=== PATIENT | male | born 1965 | race Caucasian/White ===

== ENCOUNTER 2017-12-22 08:26 | Outpatient (CLI) | payer BC ==
[2017-12-22 10:39] LABS: #Basophils 0.1 thou/uL (0.0-0.2); #Eosinphils 0.1 thou/uL (0.0-0.7); #Lymphocytes 1.7 thou/uL (1.20-3.40); #Monocytes 0.7 thou/uL (0.11-0.59); #Neutrophils 5.6 thou/uL (1.40-6.50); %Basophils 0.9 % (0.0-1.0); %Eosinophils 1.7 % (0.0-10.0); %Lymphocytes 20.4 % (21.0-51.0); %Monocytes 8.4 % (0.0-10.0); %Neutrophils 68.6 % (42.0-75.0); Bilirubin Negative (Negative); Blood, Urine Negative (Negative); Clarity CLEAR (Clear); Glucose, Urine (Dipstick) Negative (Negative); Leukocyte Negative (Negative); Mean Corpuscular HGB CONC 35.4 g/dL (32.0-36.0); Mean Corpuscular Hemoglobin 36.6 pg (27.0-31.0); Mean Platelet Volume 6.7 fL (7.4-10.4); Nitrite Negative (Negative); Platelet Count 314 thou/uL (130-400); Protein, Urine (Dipstick) Negative (Neg-Trace); RBC Distribution Width 11.8 % (11.5-14.5); Red Blood Cell (RBC) Count 4.64 mill/uL (4.70-6.10); Specific Gravity, Urine 1.011 (1.002-1.036); Urobilinogen 0.2 mg/dL (0.2-1.0); White Blood Cell (WBC) Count 8.1 thou/uL (4.8-10.8)
[2017-12-22 10:42] LABS: Bacteria/HPF None Seen HPF (None Seen); Hyaline Casts/LPF 0-3 HYALINE CAST LPF (0-3 Hyaline); Pathc Cast-AUWi Flag 0.14 (0-2.49); RBC/HPF 0-3 HPF (0-3); Squamous Epithelial None Seen HPF (0-3); WBC/HPF None Seen HPF (0-3)
[2017-12-22 10:43] LABS: Prothrombin Time 12.9 SEC (12.0-14.7)
[2017-12-22 10:57] LABS: Anion Gap 12 mmol/L (10-20); BUN (Urea Nitrogen) 13 mg/dL (8.4-25.7); Calc. Creatinine Clearance 0 mL/min (70-130); Calcium 10.2 mg/dL (7.8-10.44); Carbon Dioxide 27 mmol/L (22-29); Chloride 104 mmol/L (98-107); Estimated GFR-MDRD Greater than 90; Glucose 74 mg/dL (70-105); Sodium 139 mmol/L (136-145)
--- NOTE | 2017-12-22 14:33 | RAD ---
TWO VIEWS CHEST: Date: 12-22-17 Comparison: None. History: Pre-operative patient. FINDINGS: There is no pneumothorax, pleural fluid, focal consolidation or alveolar edema. Heart and mediastinal contours are grossly unremarkable. IMPRESSION: No acute findings. POS: [facility]
--- NOTE | 2017-12-22 20:30 | EKG ---
Test Reason : Blood Pressure : / mmHG Vent. Rate : 057 BPM Atrial Rate : 057 BPM P-R Int : 252 ms QRS Dur : 088 ms QT Int : 410 ms P-R-T Axes : 010 032 027 degrees QTc Int : 399 ms Sinus bradycardia with 1st degree A-V block with Fusion complexes Possible Anterior infarct , age undetermined Abnormal ECG No previous ECGs available Confirmed by ISMAEL GIBSON, DR. Adkins ([id number]) on 12/22/2017 8:30:17 PM Referred By: JAIME Confirmed By:DR. Jed GUEVARA MD
== END 2017-12-22 08:27 | disposition home or self-care (01) ==
LOC: LABBT 08:26
PROVIDERS: ATTEND Orthopaedic Surgery
DX: Z01.818 Encounter for other preprocedural examination (principal); M16.11 Unilateral primary osteoarthritis, right hip; M87.051 Idiopathic aseptic necrosis of right femur
CPT/HCPCS: 71046; 80048; 81001; 85025; 85610; 86850; 86900; 86901; 87081; 93005; 93010

== ENCOUNTER 2017-12-22 08:45 | Inpatient (IN) | payer BC ==
[2017-12-27] MEDS ORDERED: Sodium Chloride 0.9% 100 ML ONE (08:17)
[2017-12-27] MEDS ORDERED: Levofloxacin 500 mg/D5W 100 ml Premix Bag ONE (08:17)
[2017-12-27] MEDS ORDERED: Vancomycin HCl 1.5 GM in Sodium Chloride 0.9% 250 ML 300 ML IVPB SCH ×2 (08:30→21:00)
[2017-12-27] MEDS ORDERED: Zolpidem Tartrate 5 MG TAB PO PRN ×2 (09:07→11:00)
[2017-12-27] MEDS ORDERED: HYDROcodone/Acetaminophen 10/325 mg Tablet PO PRN ×2 (09:07)
[2017-12-27] MEDS ORDERED: diphenhydrAMINE 25 MG CAP PO PRN ×2 (09:07→11:00)
[2017-12-27] MEDS ORDERED: Fentanyl 100 MCG/2 ML VIAL SLOW IVP PRN ×2 (09:07)
[2017-12-27] MEDS ORDERED: Promethazine HCl 25 MG/ML VIAL IM PRN ×2 (09:07→11:00)
[2017-12-27] MEDS ORDERED: traMADol HCl 50 MG TAB PO PRN ×2 (09:07→11:00)
[2017-12-27] MEDS ORDERED: Ondansetron HCl/PF 4 MG/2 ML Vial IVP PRN ×2 (09:07→11:00)
[2017-12-27] MEDS ORDERED: Acetaminophen 325 MG TAB PO PRN (09:07)
[2017-12-27] MEDS ORDERED: Tranexamic Acid 1,000 MG in Sodium Chloride 0.9% 100 ML IVPB SCH (09:15)
[2017-12-27] MEDS ORDERED: Midazolam HCl 2 mg/2 ml Vial ONE ×2 (09:58→11:27)
[2017-12-27] MEDS ORDERED: diphenhydrAMINE 50 MG/ML VIAL IM PRN (11:00)
[2017-12-27] MEDS ORDERED: HYDROcodone/Acetaminophen 5/325 mg Tablet PO PRN (11:00)
[2017-12-27] MEDS ORDERED: Ketorolac Tromethamine 30 MG/ML VIAL IVP PRN (11:00)
[2017-12-27] MEDS ORDERED: Hydrocerin (Eucerin) Cream 120 gm Jar TOP PRN (11:00)
[2017-12-27] MEDS ORDERED: diphenhydrAMINE 50 MG/ML VIAL IVP PRN (11:00)
[2017-12-27] MEDS ORDERED: fentaNYL Citrate/PF 1,250 MCG, Bupivacaine 25 ML in Sodium Chloride 0.9% 250 ML 200 ML EPIDURAL SCH (11:00)
[2017-12-27] MEDS ORDERED: Promethazine HCl 25 MG SUPP PR PRN (11:00)
[2017-12-27] MEDS ORDERED: Naloxone HCl 0.4 mg/ml Vial IVP PRN (11:00)
[2017-12-27] MEDS ORDERED: Bupivacaine 0.25% 10 ML VIAL EPIDURAL PRN (11:00)
[2017-12-27] MEDS ORDERED: Naloxone HCl 0.4 mg/ml Vial IV PRN (11:00)
[2017-12-27] MEDS ORDERED: Fentanyl 100 MCG/2 ML VIAL ONE ×3 (11:28→13:37)
[2017-12-27] MEDS ORDERED: Lidocaine 1% PF 5 ML VIAL ONE (11:48)
[2017-12-27] MEDS ORDERED: Ondansetron HCl/PF 4 MG/2 ML Vial ONE (11:48)
[2017-12-27] MEDS ORDERED: PROPOFOL 200 MG/20 ML VIAL ONE (11:48)
[2017-12-27] MEDS ORDERED: PHENYLEPHRINE-NS 100 MCG/ML 10 ML SYRINGE ONE ×2 (11:48→14:13)
[2017-12-27] MEDS ORDERED: Glycopyrrolate 0.2 MG/ML 5 ML SYRINGE ONE (11:48)
[2017-12-27] MEDS ORDERED: Bupivacaine/Epinephrine 0.25% 30 ML VIAL ONE (11:51)
--- NOTE | 2017-12-27 13:31 | OP ---
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 POSTOPERATIVE DIAGNOSES: Avascular osteonecrosis, right femoral head with mild degenerative changes. PROCEDURE: Press-Fit right total hip arthroplasty. SURGEON: Rodrigo Villalta M.D. RESIDENTIAL ROOFER HELPER: Khalif Shipley PA-C. ANESTHESIA: General via endotracheal tube augmented with indwelling epidural. COMPONENTS USED: [employer] primary press fit Accolade size 5.5 hip stem with a Tritanium 5 4 mm primary press-fit acetabular cup, 10 degree polyethylene fixed bearing 36 mm insert, and a ceram ic V40 femoral head, standard offset. FINDINGS: Mild hemarthrosis with large effusion of right hip capsule. DRAINS: None. SPECIMENS: None. COMPLICATIONS: None. COUNTS: Correct. ESTIMATED BLOOD LOSS: 100 mL. INDICATIONS FOR SURGERY: Jc is a 52-year-old white male who has had progressive right-sided hip pain for the last 3-4 months. MRI demonstrated avascular necrosis of the right femoral head. He has elected to proceed with total hip arthroplasty as treatment of this problem. PROCEDURE IN DETAIL: After informed consent was obtained in the preoperative holding area, the patie nt was taken to the operative suite where general anesthesia was induced. The patient was then posit ioned in the lateral decubitus position. The hip was then prepped and draped in usual sterile fashio n. The patient received preoperative antibiotics. Prior to incision, time-out was called and all me mbers of the surgical team agreed upon site, surgeon, and patient. After this, a longitudinal incisi on was made directly over the trochanter, noted by palpation extending 2 fingerbreadths above and bel ow the trochanter. The deeper subcutaneous layer was undermined with Bovie electrocautery. The ilio tibial band was encountered and incised sharply and the plane below this was developed bluntly. [facility] to hold this opened. The lateral aspect of the trochanter and the abduct or muscles were encountered and then reflected anteriorly off the trochanter using Bovie electrocaute ry. Once this was completed, the anterior capsule was then encountered and identified and copious ca psulotomy was carried out, exposing the femoral neck and head. Dislocation maneuver was then performe d and an in situ provisional neck cut was then made using the oscillating saw. Attention was then tu rned to acetabular preparation and sequential reaming was carried out up to the appropriate diameter and a trial was then malleted into place with good firm resistance and no pullout. The permanent porsche tabular shell was then malleted squarely into place, as was the appropriate liner. Once completed, t he wound was copiously irrigated and attention was then turned to femoral preparation. Flexion and ex ternal rotation was performed of the exposed thigh and femoral elevators were then placed at the prox imal aspect of the wound. Canal finder was used to establish the length of the canal and sequential reaming was carried out, followed by broaching. Once the appropriate stability was established with the trial broaches with both flexion, extension and rotational stability, we did trial with neutral a nd 2 mm offset incremental necks. Once the appropriate size was decided upon, with good stability no natalie with flexion, extension, internal and external rotation and shuck being negative, we removed the femoral trial broach and malletted into place the permanent prosthesis with good firm fit, which was also stable to rotation. Again, the hip felt very stable to flexion, extension, internal and externa l rotation. Leg lengths appeared near anatomic clinically and we were quite happy with prosthesis pl acement. Copious irrigation was then carried out through the entirety of the wound. Primary closure of the abductors was accomplished with interrupted #2 Vicryl mqfabh-[id number]-zheqf stitches and the IT ban d was then closed with interrupted #2 Vicryl, oversewn with a #2 running barbed Quill stitch. Subcut aneous fascia was closed with running barbed Quill stitch and a subcuticular Monocryl barbed Quill st itch was used for skin closure and augmented with skin cement. A sterile dressing was applied. The p rocedure was terminated without any complication. All counts were correct. The patient was awakened in the operative suite and taken to the recovery room in stable condition.
[2017-12-27] MEDS ORDERED: Ketorolac Tromethamine 30 MG/ML VIAL IVP SCH (14:00)
--- NOTE | 2017-12-27 15:50 | RAD ---
FRONTAL RADIOGRAPH LEFT HIP 12/27/17 COMPARISON: None. HISTORY: Postoperative patient. FINDINGS: There is mild superior joint space narrowing. There is no displaced fracture or dislocation. However, evaluation is limited as only a frontal view is provided. IMPRESSION: No displaced fracture appreciated. POS: [facility]
--- NOTE | 2017-12-27 15:51 | RAD ---
TWO VIEWS OF THE RIGHT HIP 12/27/17 COMPARISON: None. HISTORY: Postoperative patient, status post total hip arthroplasty. FINDINGS: The patient is status post total hip arthroplasty. No evidence for hardware failure. No acute fractur e or dislocation. Subcutaneous gas is seen lateral to the proximal right femur. IMPRESSION: Status post right total hip arthroplasty. POS: [facility]
[2017-12-27 16:19] VITALS: BMI 24.4
[2017-12-27] MEDS: Sodium Chloride 0.9% 1,000 ML IV SCH ×2 (18:18→21:42)
[2017-12-27] MEDS ORDERED: Diazepam 5 MG TAB PO PRN (20:01)
[2017-12-27] MEDS ORDERED: Thiamine HCl 200 MG/2 ML VIAL IM SCH (20:15)
[2017-12-27] MEDS ORDERED: Diazepam 5 MG TAB PO SCH (20:15)
--- NOTE | 2017-12-27 20:30 | CON ---
DATE OF CONSULTATION: 12/27/2017 PRIMARY CARE PHYSICIAN: Yahir Lazaro M.D. PRIMARY TEAM: Dr. Villalta. REASON FOR CONSULTATION: Medical management. HISTORY OF PRESENT ILLNESS: This is a 52-year-old white male with history of bilateral avascular nec rosis of the hips with worsening pain especially in the right recently who presented for a scheduled right total hip arthroplasty. This was performed earlier today. He is doing well postoperatively ri [facility] now, not in any discomfort. PAST MEDICAL HISTORY: 1. Gastroesophageal reflux disease with Waldron's esophagitis. 2. Single previous and gout attack. 3. Avascular necrosis of the hips. PAST SURGICAL HISTORY: None. SOCIAL HISTORY: The patient is , lives with his , Judith Arias. He smokes 1 pack of cigarettes per day as previously quit for a couple years, using Chantix, but then got back on it abo ut 10 years ago. He does not drink almost daily one large mixed drink per day. No illicit drug use. FAMILY HISTORY: Dad had a stroke and of stomach cancer at age 63 and his paternal grandmother h ad a stroke as well. ALLERGIES: PENICILLIN. HOME MEDICATIONS: 1. Ibuprofen 800 mg as needed for pain. 2. Tramadol 50 mg as needed for pain. 3. Allopurinol 300 mg each morning. 4. Geritol Complete multivitamin 1 tablet daily. 5. Protonix 40 mg each morning. 6. Ranitidine 150 mg as needed for GERD symptoms. REVIEW OF SYSTEMS: Constitutional: No fevers or chills. Eyes: No double vision or blurred vision. ENT: No congestion or drainage. He is a little bit sore since the intubation for the surgery, but not bad. Cardiovascular: No chest pain, no palpitations or racing heart. Pulmonary: No coughing, wheezing, shortness of breath. Gastrointestinal: No abdominal pain. He had a little nausea right after surgery this since resolved. No vomiting, no diarrhea or constipation. Genitourinary: No dys uria or hematuria. Musculoskeletal: See HPI. Skin: No rashes or lesions noted. Neurologic: No n umbness, tingling or focal weakness. PHYSICAL EXAMINATION: VITAL SIGNS: Blood pressure 99/60, pulse 60, respirations 18, O2 sat 95% on room air, temperature 97 .9. GENERAL: This is a well-developed, well-nourished, white male who has some flushing of the face cons istent with regular alcohol intake and in no acute distress. HEENT: Pupils equal, round, and reactive to light. Extraocular movements intact. Oropharynx clear without lesions, erythema or exudate. NECK: Supple, no lymphadenopathy, no thyroid nodules or enlargement, no JVD. HEART: Regular rate and rhythm, no murmurs, rubs or gallops. LUNGS: Clear to auscultation bilaterally, no wheezes, crackles or rhonchi. ABDOMEN: Soft, nontender to palpation, normoactive bowel sounds, no hepatosplenomegaly or other mass es. EXTREMITIES: He has a surgical dressing on the right hip. No clubbing. No cyanosis. SKIN: No rashes or other lesions noted. NEUROLOGIC: He has intact sensation in all extremities. He is able to move all extremities and has no facial droop. LABORATORY DATA: He did have labs done 5 days ago, this showed CBC normal except for an elevated MCV of 103 consistent with his alcohol intake. Coagulation profile normal. His basic metabolic panel w as negative. His urinalysis was negative. ASSESSMENT AND PLAN: 1. Bilateral avascular necrosis of the hips, status post right total hip arthroplasty, doing well po stop. 2. History of regular alcohol intake. We will go ahead and put him on ASE protocol in case he start s having withdrawal symptoms. 3. History of gastroesophageal reflux disease with Waldron's esophagitis. We will continue patient' s PPI. 4. History of gout. We will continue patient's allopurinol. 5. Deep venous thrombosis prophylaxis as per surgical team. CODE STATUS: Patient is a FULL CODE.
[2017-12-27] MEDS ORDERED: Famotidine 20 MG TAB PO PRN (21:00)
[2017-12-27] MEDS: Senokot S 8.6-50 MG TAB PO SCH (21:50)
[2017-12-27] MEDS: Ferrous Gluconate 324 MG TAB PO SCH (21:50)
[2017-12-28] MEDS: HYDROcodone/Acetaminophen 5/325 mg Tablet PO PRN ×4 (01:25→20:43)
[2017-12-28] MEDS ORDERED: Diazepam 5 MG TAB PO PRN (04:00)
[2017-12-28 04:30] LABS: Hemoglobin 13.3 g/dL (14.0-18.0); Mean Corpuscular HGB CONC 34.4 g/dL (32.0-36.0); Mean Corpuscular Hemoglobin 35.9 pg (27.0-31.0); Mean Platelet Volume 6.9 fL (7.4-10.4); Platelet Count 272 thou/uL (130-400); RBC Distribution Width 11.7 % (11.5-14.5); Red Blood Cell (RBC) Count 3.72 mill/uL (4.70-6.10); White Blood Cell (WBC) Count 8.9 thou/uL (4.8-10.8)
[2017-12-28] MEDS: Sodium Chloride 0.9% 1,000 ML IV SCH ×2 (04:33→08:03)
[2017-12-28] MEDS: Magnesium Oxide 400 MG TAB PO SCH (08:02)
[2017-12-28] MEDS: Folic Acid 1 MG TAB PO SCH (08:03)
[2017-12-28] MEDS: Ferrous Gluconate 324 MG TAB PO SCH ×2 (08:03→20:43)
[2017-12-28] MEDS: Multivitamin W/ Minerals 1 TAB PO SCH (08:03)
[2017-12-28] MEDS: Allopurinol 300 MG TAB PO SCH (08:03)
[2017-12-28] MEDS: Senokot S 8.6-50 MG TAB PO SCH ×2 (08:03→20:43)
[2017-12-28] MEDS: traMADol HCl 50 MG TAB PO PRN (08:27)
[2017-12-28] MEDS ORDERED: Multivitamin W/ Minerals 1 TAB PO SCH ×2 (09:00)
--- NOTE | 2017-12-28 14:13 | PDOC.PN ---
- Subjective Encounter Start Date: 12/28/17 Encounter Start Time: 14:12 Subjective: Pt examined for Rt hip Arthroplasty, POD #1, -: sitting in chair denies any complain - Objective MAR Reviewed: Yes Vital Signs & Weight: Vital Signs (12 hours) Temp Pulse Resp BP BP Pulse Ox 12/28/17 11:28 98.8 F 78 16 102/65 92 L 12/28/17 08:40 99.3 F 80 18 98 12/28/17 07:47 99.3 F 80 18 123/76 94 L 12/28/17 04:00 99.1 F 89 18 128/78 97 Weight Admit Weight 185 lb Weight 185 lb I&O: 12/27/17 12/28/17 12/29/17 06:59 06:59 06:59 Intake Total 3616 Output Total 4000 Balance -384 Result Diagrams: 12/28/17 03:31 Radiology Reviewed by me: Yes Phys Exam - Physical Examination HEENT: PERRLA, sclera anicteric, TM's clear, oral pharynx no lesions Neck: no nodes, no JVD Respiratory: no wheezing, no rales, no rhonchi, clear to auscultation bilateral Cardiovascular: RRR, no significant murmur, no rub Gastrointestinal: soft, non-tender, no distention, positive bowel sounds Musculoskeletal: no edema, pulses present (s/p dressing) Dx/Plan - Plan plan discussed w/ family, PT/OT, DVT proph w/lovenox * . 1) Rt Hip Arthropasty, Continue POst OP Care and Pain management 2) esophogitis continue PPI
[2017-12-29] MEDS: HYDROcodone/Acetaminophen 5/325 mg Tablet PO PRN ×2 (01:05→06:02)
[2017-12-29] MEDS: Sodium Chloride 0.9% 1,000 ML IV SCH ×2 (01:07→14:52)
[2017-12-29 06:03] LABS: Hemoglobin 12.7 g/dL (14.0-18.0); Mean Corpuscular HGB CONC 34.4 g/dL (32.0-36.0); Mean Corpuscular Hemoglobin 35.8 pg (27.0-31.0); Mean Platelet Volume 6.5 fL (7.4-10.4); Platelet Count 241 thou/uL (130-400); RBC Distribution Width 11.6 % (11.5-14.5); Red Blood Cell (RBC) Count 3.56 mill/uL (4.70-6.10)
[2017-12-29] MEDS: Multivitamin W/ Minerals 1 TAB PO SCH ×2 (09:11→09:13)
[2017-12-29] MEDS: Ferrous Gluconate 324 MG TAB PO SCH ×2 (09:12→09:13)
[2017-12-29] MEDS: Senokot S 8.6-50 MG TAB PO SCH (09:12)
[2017-12-29] MEDS: Magnesium Oxide 400 MG TAB PO SCH (09:13)
[2017-12-29] MEDS: Folic Acid 1 MG TAB PO SCH (09:13)
[2017-12-29] MEDS: traMADol HCl 50 MG TAB PO PRN (09:14)
[2017-12-29] MEDS: Allopurinol 300 MG TAB PO SCH (09:14)
[2017-12-29] MEDS ORDERED: HYDROcodone/Acetaminophen 10/325 mg Tablet PO PRN (10:32)
[2017-12-29] MEDS: HYDROcodone/Acetaminophen 10/325 mg Tablet PO PRN ×2 (11:12→15:20)
[2017-12-29 11:59] VITALS: TEMP 98.2
[2017-12-29 12:02] VITALS: BP 123/74
--- NOTE | 2017-12-29 13:49 | PDOC.PN ---
- Subjective Encounter Start Date: 12/29/17 Encounter Start Time: 13:47 Subjective: Pt seen and Examined for Right Hip replacement -: walked with PT, no new complain - Objective Vital Signs & Weight: Vital Signs (12 hours) Temp Pulse Resp BP BP BP Pulse Ox 12/29/17 12:01 123/74 12/29/17 11:30 98.2 F 77 18 128/72 94 L 12/29/17 10:40 99.1 F 94 20 94 L 12/29/17 09:01 122/80 12/29/17 08:15 120/80 12/29/17 07:50 99.1 F 94 20 101/59 L 93 L 12/29/17 04:17 98.7 F 75 17 105/56 L 93 L Weight Admit Weight 185 lb Weight 185 lb I&O: 12/28/17 12/29/17 12/30/17 06:59 06:59 06:59 Intake Total 3616 3420 Output Total 4000 3900 Balance -384 -480 Result Diagrams: 12/29/17 05:23 Radiology Reviewed by me: Yes Phys Exam - Physical Examination HEENT: PERRLA, sclera anicteric, oral pharynx no lesions Neck: no nodes, no JVD, supple, full ROM Respiratory: no wheezing, no rales, no rhonchi, clear to auscultation bilateral Cardiovascular: RRR, no significant murmur, no rub, gallop Gastrointestinal: soft, non-tender, no distention, positive bowel sounds Musculoskeletal: no edema, pulses present (Dressing RT HIP) Neurological: non-focal Lymphatic: no nodes Psychiatric: normal affect, A&O x 3 Dx/Plan - Plan PT/OT * . 1) RT Hip Replacement, Continue Postop care,PT pain mangement 2 GERD on PPI 3 DVT proiphylaxis Aspirin
== END 2017-12-29 17:05 | disposition home or self-care (01) | DRG 470 ==
LOC: SURG A 12-27 07:44 → SJJU 12-27 14:43
PROVIDERS: ADMIT Orthopaedic Surgery; ATTEND Orthopaedic Surgery
PROC: 0SRB02A Replacement of Left Hip Joint with Metal on Polyethylene Synthetic Substitute, Uncemented, Open Approach (ICD-10-PCS; principal; 2017-12-27)
DX: M16.11 Unilateral primary osteoarthritis, right hip (principal); M87.9 Osteonecrosis, unspecified; K21.9 Gastro-esophageal reflux disease without esophagitis; K22.70 Barrett's esophagus without dysplasia; F17.210 Nicotine dependence, cigarettes, uncomplicated; Z88.0 Allergy status to penicillin; Z79.1 Long term (current) use of non-steroidal anti-inflammatories (NSAID); Z79.899 Other long term (current) drug therapy
CPT/HCPCS: 36415; 85027; G8978-GP-CK; G8979-GP-CI; G8987-GO-CJ; G8988-GO-CI; J1885; J1956; J2001; J2250; J2405; J2704; J3010; J3370; J3411; J3475; J3490; J7050

== ENCOUNTER 2018-02-23 10:11 | Outpatient (CLI) | payer BC ==
[2018-02-23 11:49] LABS: #Eosinphils 0.1 thou/uL (0.0-0.7); #Lymphocytes 1.7 thou/uL (1.20-3.40); #Monocytes 0.5 thou/uL (0.11-0.59); #Neutrophils 3.6 thou/uL (1.40-6.50); %Basophils 0.7 % (0.0-1.0); %Lymphocytes 28.2 % (21.0-51.0); %Monocytes 8.5 % (0.0-10.0); %Neutrophils 60.6 % (42.0-75.0); Hemoglobin 14.9 g/dL (14.0-18.0); Mean Corpuscular HGB CONC 34.9 g/dL (32.0-36.0); Mean Corpuscular Hemoglobin 35.1 pg (27.0-31.0); Mean Platelet Volume 6.1 fL (7.4-10.4); Platelet Count 323 thou/uL (130-400); RBC Distribution Width 11.7 % (11.5-14.5); Red Blood Cell (RBC) Count 4.24 mill/uL (4.70-6.10); White Blood Cell (WBC) Count 5.9 thou/uL (4.8-10.8)
[2018-02-23 12:00] LABS: INR-International Normal Ratio 0.9; Prothrombin Time 12.7 SEC (12.0-14.7)
[2018-02-23 12:05] LABS: PTT 26.7 SEC (22.9-36.1)
[2018-02-23 12:13] LABS: Anion Gap 12 mmol/L (10-20); BUN (Urea Nitrogen) 14 mg/dL (8.4-25.7); Calc. Creatinine Clearance 0 mL/min (70-130); Calcium 10.3 mg/dL (7.8-10.44); Carbon Dioxide 24 mmol/L (22-29); Chloride 108 mmol/L (98-107); Estimated GFR-MDRD Greater than 90; Glucose 104 mg/dL (70-105); Potassium 3.9 mmol/L (3.5-5.1); Sodium 140 mmol/L (136-145)
== END 2018-02-23 10:12 | disposition home or self-care (01) ==
LOC: LABBT 10:11
PROVIDERS: ATTEND Orthopaedic Surgery
DX: Z01.818 Encounter for other preprocedural examination (principal); M16.11 Unilateral primary osteoarthritis, right hip; M87.851 Other osteonecrosis, right femur
CPT/HCPCS: 80048; 85025; 85610; 85730; 86850; 86900; 86901; 87081

== ENCOUNTER 2018-02-23 13:15 | Inpatient (IN) | payer BC ==
[2018-02-23 10:41] VITALS: BMI 24.4
[2018-02-28] MEDS ORDERED: Vancomycin HCl 1.5 GM in Sodium Chloride 0.9% 250 ML 300 ML IVPB SCH ×2 (10:15→23:00)
[2018-02-28] MEDS ORDERED: Ondansetron HCl/PF 4 MG/2 ML Vial IVP PRN ×3 (10:24→13:08)
[2018-02-28] MEDS ORDERED: Fentanyl 100 MCG/2 ML VIAL SLOW IVP PRN ×2 (10:24)
[2018-02-28] MEDS ORDERED: diphenhydrAMINE 25 MG CAP PO PRN ×2 (10:24→11:30)
[2018-02-28] MEDS ORDERED: HYDROcodone/Acetaminophen 10/325 mg Tablet PO PRN ×2 (10:24)
[2018-02-28] MEDS ORDERED: traMADol HCl 50 MG TAB PO PRN ×3 (10:24→11:30)
[2018-02-28] MEDS ORDERED: Acetaminophen 325 MG TAB PO PRN (10:24)
[2018-02-28] MEDS ORDERED: Promethazine HCl 25 MG/ML VIAL IM PRN ×2 (10:24→11:30)
[2018-02-28] MEDS ORDERED: Zolpidem Tartrate 5 MG TAB PO PRN ×2 (10:24→11:30)
[2018-02-28] MEDS ORDERED: Levofloxacin 500 mg/D5W 100 ml Premix Bag ONE (10:25)
[2018-02-28] MEDS ORDERED: Sodium Chloride 0.9% 100 ML ONE (10:26)
[2018-02-28] MEDS ORDERED: Midazolam HCl 2 mg/2 ml Vial ONE (10:37)
[2018-02-28] MEDS ORDERED: HYDROmorphone 0.5 MG/0.5 ML SYRINGE ONE (10:37)
[2018-02-28] MEDS ORDERED: Promethazine HCl 25 MG SUPP PR PRN (11:30)
[2018-02-28] MEDS ORDERED: diphenhydrAMINE 50 MG/ML VIAL IVP PRN (11:30)
[2018-02-28] MEDS ORDERED: Hydrocerin (Eucerin) Cream 120 gm Jar TOP PRN (11:30)
[2018-02-28] MEDS ORDERED: diphenhydrAMINE 50 MG/ML VIAL IM PRN (11:30)
[2018-02-28] MEDS ORDERED: Naloxone HCl 0.4 mg/ml Vial IV PRN (11:30)
[2018-02-28] MEDS ORDERED: fentaNYL Citrate/PF 1,250 MCG, Bupivacaine 25 ML in Sodium Chloride 0.9% 250 ML 200 ML EPIDURAL SCH (11:30)
[2018-02-28] MEDS ORDERED: Naloxone HCl 0.4 mg/ml Vial IVP PRN (11:30)
[2018-02-28] MEDS ORDERED: Bupivacaine 0.25% 10 ML VIAL EPIDURAL PRN (11:30)
[2018-02-28] MEDS ORDERED: Ropivacaine 0.2% HCl/PF 20 ML ONE (12:00)
[2018-02-28] MEDS ORDERED: Promethazine HCl 25 MG/ML VIAL SLOW IVP PRN (13:08)
[2018-02-28] MEDS ORDERED: Morphine Sulfate 2 MG/ML SYRINGE SLOW IVP PRN (13:08)
[2018-02-28] MEDS ORDERED: Fentanyl 100 MCG/2 ML VIAL ONE ×2 (13:10→13:36)
[2018-02-28] MEDS ORDERED: PROPOFOL 200 MG/20 ML VIAL ONE (13:29)
[2018-02-28] MEDS ORDERED: Ketorolac Tromethamine 30 MG/ML VIAL ONE (13:29)
[2018-02-28] MEDS ORDERED: Lidocaine 1% PF 5 ML VIAL ONE (13:29)
[2018-02-28] MEDS ORDERED: Ondansetron HCl/PF 4 MG/2 ML Vial ONE (13:29)
[2018-02-28] MEDS ORDERED: Glycopyrrolate 0.2 MG/ML 5 ML SYRINGE ONE (13:29)
[2018-02-28] MEDS ORDERED: Dexamethasone 20 MG/5 ML VIAL ONE (13:29)
[2018-02-28] MEDS ORDERED: PHENYLEPHRINE-NS 100 MCG/ML 10 ML SYRINGE ONE (13:29)
--- NOTE | 2018-02-28 13:43 | OP ---
DATE OF PROCEDURE: 02/28/2018 TITLE OF PROCEDURE: Left total hip arthroplasty using [place] Accolade 5.5 stem, standard 36 mm head , 54 mm Tritanium cup with X3 polyethylene. The head was a ceramic head. SURGEON: Rodrigo Villalta M.D. BOW TACKER: Milton Cuevas PA-C. BLOOD LOSS: 150 mL SPECIMEN: None. DRAINS: None. COMPLICATIONS: None. PROCEDURE IN DETAIL: After informed consent was obtained in the preoperative holding area, the patie nt was taken to the operative suite where general anesthesia was induced. The patient was then posit ioned in the lateral decubitus position. The hip was then prepped and draped in usual sterile fashio n. The patient received preoperative antibiotics. Prior to incision, time-out was called and all me mbers of the surgical team agreed upon site, surgeon, and patient. After this, a longitudinal incisi on was made directly over the trochanter, noted by palpation extending 2 fingerbreadths above and bel ow the trochanter. The deeper subcutaneous layer was undermined with Bovie electrocautery. The ilio tibial band was encountered and incised sharply and the plane below this was developed bluntly. [facility] to hold this opened. The lateral aspect of the trochanter and the abduct or muscles were encountered and then reflected anteriorly off the trochanter using Bovie electrocaute ry. Once this was completed, the anterior capsule was then encountered and identified and copious ca psulotomy was carried out, exposing the femoral neck and head. Dislocation maneuver was then perform ed and an in situ provisional neck cut was then made using the oscillating saw. Attention was then t urned to acetabular preparation and sequential reaming was carried out up to the appropriate diameter and a trial was then malleted into place with good firm resistance and no pullout. The permanent ac etabular shell was then malleted squarely into place, as was the appropriate liner. Once completed, the wound was copiously irrigated and attention was then turned to femoral preparation. Flexion and e xternal rotation was performed of the exposed thigh and femoral elevators were then placed at the pro ximal aspect of the wound. Canal finder was used to establish the length of the canal and sequential reaming was carried out, followed by broaching. Once the appropriate stability was established with the trial broaches with both flexion, extension and rotational stability, we did trial with neutral and 2 mm offset incremental necks. Once the appropriate size was decided upon, with good stability n oted with flexion, extension, internal and external rotation and shuck being negative, we removed the femoral trial broach and malletted into place the permanent prosthesis with good firm fit, which was also stable to rotation. Again, the hip felt very stable to flexion, extension, internal and material handling supervisor al rotation. Leg lengths appeared near anatomic clinically and we were quite happy with prosthesis p lacement. Copious irrigation was then carried out through the entirety of the wound. Primary closur e of the abductors was accomplished with interrupted #2 Vicryl [id number]-ta-qetia stitches and the IT ba nd was then closed with interrupted #2 Vicryl, oversewn with a #2 running barbed Quill stitch. Subcu taneous fascia was closed with running barbed Quill stitch and a subcuticular Monocryl barbed Quill s titch was used for skin closure and augmented with skin cement. A sterile dressing was applied. The procedure was terminated without any complication. All counts were correct. The patient was awakene d in the operative suite and taken to the recovery room in stable condition.
--- NOTE | 2018-02-28 13:51 | RAD ---
TWO VIEWS LEFT HIP: History: Total hip arthroplasty. FINDINGS: Post-operative change consistent with left hip arthroplasty noted. Alignment appears to be anatomic. IMPRESSION: Near anatomic alignment. Patient status post left hip arthroplasty. POS: [facility]
[2018-02-28] MEDS ORDERED: Ketorolac Tromethamine 30 MG/ML VIAL IVP SCH (14:00)
[2018-02-28] MEDS: Ketorolac Tromethamine 30 MG/ML VIAL IVP SCH ×3 (16:16→23:21)
[2018-02-28] MEDS: Sodium Chloride 0.9% 1,000 ML IV SCH ×2 (16:16→21:16)
[2018-02-28] MEDS ORDERED: Famotidine 20 MG TAB PO PRN (21:00)
[2018-02-28] MEDS: Aspirin 325 MG TAB PO SCH (21:17)
[2018-02-28] MEDS: Varenicline Tartrate 0.5 MG TAB PO SCH (21:17)
[2018-03-01 04:53] LABS: Hemoglobin 11.3 g/dL (14.0-18.0); Mean Corpuscular HGB CONC 36.2 g/dL (32.0-36.0); Mean Corpuscular Hemoglobin 36.8 pg (27.0-31.0); Platelet Count 257 thou/uL (130-400); RBC Distribution Width 11.7 % (11.5-14.5); Red Blood Cell (RBC) Count 3.08 mill/uL (4.70-6.10); White Blood Cell (WBC) Count 10.5 thou/uL (4.8-10.8)
[2018-03-01] MEDS: Ketorolac Tromethamine 30 MG/ML VIAL IVP SCH ×4 (05:30→23:54)
[2018-03-01] MEDS: Sodium Chloride 0.9% 1,000 ML IV SCH ×2 (06:52→16:06)
[2018-03-01] MEDS: Varenicline Tartrate 0.5 MG TAB PO SCH ×2 (07:38→21:18)
[2018-03-01] MEDS: Senokot S 8.6-50 MG TAB PO SCH ×2 (07:39→21:16)
[2018-03-01] MEDS: Multivitamin W/ Minerals 1 TAB PO SCH (07:39)
[2018-03-01] MEDS: Aspirin 325 MG TAB PO SCH ×2 (07:40→21:16)
[2018-03-01] MEDS: Ferrous Gluconate 324 MG TAB PO SCH ×2 (07:40→16:41)
[2018-03-01] MEDS: Allopurinol 300 MG TAB PO SCH (07:40)
[2018-03-01] MEDS ORDERED: MULTIVIT MIN36 PO SCH (09:00)
[2018-03-01] MEDS ORDERED: IRON PO SCH (09:00)
[2018-03-01] MEDS ORDERED: FOLIC ACID PO SCH (09:00)
[2018-03-01] MEDS: HYDROcodone/Acetaminophen 5/325 mg Tablet PO PRN ×3 (09:34→21:18)
--- NOTE | 2018-03-01 21:27 | PDOC.PN ---
- Subjective Encounter Start Date: 03/01/18 Encounter Start Time: 13:00 Subjective: pt up in chair no complains - Objective Vital Signs & Weight: Vital Signs (12 hours) Temp Pulse Resp BP Pulse Ox 03/01/18 16:07 97.9 F 68 18 101/59 L 94 L 03/01/18 11:30 97.9 F 64 18 120/70 96 Weight Admit Weight 185 lb Weight 185 lb I&O: 02/28/18 03/01/18 03/02/18 06:59 06:59 06:59 Intake Total 2940 1680 Output Total 2800 0405 Balance 140 -795 Result Diagrams: 03/01/18 04:21 Phys Exam - Physical Examination Respiratory: no wheezing, no rales, no rhonchi, wheezing present, clear to auscultation bilateral Cardiovascular: RRR, no significant murmur, no rub, gallop, irregular Gastrointestinal: soft, non-tender, no distention, positive bowel sounds Musculoskeletal: no edema, pulses present, edema present left hip dressing intact Dx/Plan (1) Gout Code(s): M10.9 - GOUT, UNSPECIFIED Status: Acute (2) Hankins esophagus Code(s): K22.70 - HANKINS'S ESOPHAGUS WITHOUT DYSPLASIA Status: Acute - Plan s/p left hip arthoplasty -: will continue home meds * . Review of Systems - Review of Systems Respiratory: negative: Cough, Dry, Shortness of Breath, Hemoptysis, SOB with Excertion, Pleuritic Pain, Sputum, Wheezing Cardiovascular: negative: chest pain, palpitations, orthopnea, paroxysmal nocturnal dyspnea, edema, light headedness, other Gastrointestinal: negative: Nausea, Vomiting, Abdominal Pain, Diarrhea, Constipation, Melena, Hematochezia, Other Genitourinary: negative: Dysuria, Frequency, Incontinence, Hematuria, Retention , Other - Medications/Allergies Allergies/Adverse Reactions: Allergies Allergy/AdvReac Type Severity Reaction Status Date / Time Penicillins Allergy rash, hives Verified 02/23/18 10:41 Medications: Current Medications Acetaminophen (Tylenol) 650 mg PO Q4H PRN PRN Reason: GONZALEZ/ T > 101F; Mild Pain (1-3) Hydrocodone Bitart/Acetaminophen ([place] 5/325) 1 tab PO Q4H PRN PRN Reason: Mild Pain 0-3 Last Admin: 03/01/18 21:18 Dose: 1 tab Hydrocodone Bitart/Acetaminophen ([place] 5/325) 2 tab PO Q4H PRN PRN Reason: For Moderate Pain 4-6 Last Admin: 03/01/18 09:34 Dose: 2 tab Allopurinol (Zyloprim) 300 mg PO QAM [facility] Last Admin: 03/01/18 07:40 Dose: 300 mg Aspirin (Aspirin) 325 mg PO BID [facility] Last Admin: 03/01/18 21:16 Dose: 325 mg Diphenhydramine HCl (Benadryl) 25 mg PO Q3H PRN PRN Reason: Itching Diphenhydramine HCl (Benadryl) 25 mg IM Q3H PRN PRN Reason: Itching Diphenhydramine HCl (Benadryl) 25 mg IVP Q3H PRN PRN Reason: Itching Emollient Cream (Hydrocerin Cream) 0 gm TOP PRN PRN PRN Reason: Itching Famotidine (Pepcid) 20 mg PO BID PRN PRN Reason: INDIGESTION Ferrous Gluconate (Fergon) 324 mg PO BID-[facility] Last Admin: 03/01/18 16:41 Dose: 324 mg Sodium Chloride (Normal Saline 0.9%) 1,000 mls @ 100 mls/hr IV .Q10H [facility] Last Admin: 03/01/18 16:06 Dose: Not Given Fentanyl Citrate 1,250 mcg/Bupivacaine HCl 25 ml/ Sodium Chloride 250 mls @ 0 mls/hr EPIDURAL INF [facility] PRN Reason: As Directed Last Admin: 03/01/18 19:24 Dose: 250 mls Iron/Minerals/Multivitamins (Theragran M) 1 tab PO DAILY [facility] Last Admin: 03/01/18 07:39 Dose: 1 tab Ketorolac Tromethamine (Toradol) 30 mg IVP Q6HR [facility] Stop: 03/02/18 06:01 Last Admin: 03/01/18 16:40 Dose: 30 mg Miscellaneous Information (Communication Order-Pharmacy) 1 each FS ASDIR [facility] Naloxone HCl (Narcan) 0.2 mg IV Q5MIN PRN PRN Reason: RR <=8 OR OBTUNDED/UNAROUSABLE Naloxone HCl (Narcan) 0.1 mg IVP Q15MIN PRN PRN Reason: URINARY RETENTION Ondansetron HCl (Zofran) 4 mg IVP Q6H PRN PRN Reason: Nausea/Vomiting Pantoprazole Sodium (Protonix) 40 mg PO QAM [facility] Last Admin: 03/01/18 07:40 Dose: 40 mg Promethazine HCl (Phenergan) 12.5 mg IM Q4H PRN PRN Reason: Nausea Promethazine HCl (Phenergan Suppository) 25 mg [place] Q4H PRN PRN Reason: Nausea/Vomiting Senna/Docusate Sodium (Senokot S) 2 tab PO BID [facility] Last Admin: 03/01/18 21:16 Dose: 2 tab Sodium Chloride (Flush - Normal Saline) 10 ml IVF PRN PRN PRN Reason: Saline Flush Tramadol HCl (Ultram) 50 mg PO Q6H PRN PRN Reason: Mild Pain 1-3 Tramadol HCl (Ultram) 100 mg PO Q6H PRN PRN Reason: Moderate Pain 4-6 Varenicline (Chantix) 1 mg PO BID [facility] Last Admin: 03/01/18 21:18 Dose: 1 mg Zolpidem Tartrate (Ambien) 5 mg PO HSPRN PRN PRN Reason: Insomnia
[2018-03-02] MEDS: Sodium Chloride 0.9% 1,000 ML IV SCH ×2 (03:23→15:43)
[2018-03-02 06:05] LABS: Hemoglobin 10.8 g/dL (14.0-18.0); Mean Corpuscular HGB CONC 36.1 g/dL (32.0-36.0); Mean Platelet Volume 6.5 fL (7.4-10.4); Platelet Count 233 thou/uL (130-400); RBC Distribution Width 11.7 % (11.5-14.5); Red Blood Cell (RBC) Count 2.93 mill/uL (4.70-6.10); White Blood Cell (WBC) Count 7.2 thou/uL (4.8-10.8)
[2018-03-02] MEDS: Ketorolac Tromethamine 30 MG/ML VIAL IVP SCH (06:49)
[2018-03-02] MEDS ORDERED: Aspirin 81 mg Enteric Coated Tablet PO SCH (09:00)
[2018-03-02] MEDS: Ferrous Gluconate 324 MG TAB PO SCH (09:08)
[2018-03-02] MEDS: Multivitamin W/ Minerals 1 TAB PO SCH (09:09)
[2018-03-02] MEDS: Allopurinol 300 MG TAB PO SCH (09:10)
[2018-03-02] MEDS: Senokot S 8.6-50 MG TAB PO SCH (09:10)
[2018-03-02] MEDS: Varenicline Tartrate 0.5 MG TAB PO SCH (09:10)
[2018-03-02] MEDS: HYDROcodone/Acetaminophen 5/325 mg Tablet PO PRN (09:26)
[2018-03-02] MEDS ORDERED: HYDROcodone/Acetaminophen 10/325 mg Tablet PO PRN ×2 (11:14)
[2018-03-02 12:03] VITALS: BP 130/80; TEMP 98.3
== END 2018-03-02 15:15 | disposition home or self-care (01) | DRG 470 ==
LOC: SURG A 02-28 09:42 → SJJU 02-28 15:28
PROVIDERS: ADMIT Orthopaedic Surgery; ATTEND Orthopaedic Surgery
PROC: 0SRB0J9 Replacement of Left Hip Joint with Synthetic Substitute, Cemented, Open Approach (ICD-10-PCS; principal; 2018-02-28)
DX: M17.12 Unilateral primary osteoarthritis, left knee (principal); M16.12 Unilateral primary osteoarthritis, left hip; M10.9 Gout, unspecified; K22.70 Barrett's esophagus without dysplasia; Z88.0 Allergy status to penicillin
CPT/HCPCS: 36415; 85027; G8978-GP-CK; G8979-GP-CJ; G8987-GO-CJ; G8988-GO-CJ; G8989-GO-CJ; J1100; J1170; J1885; J1956; J2001; J2250; J2405; J2550; J2704; J2795; J3010; J3370; J3490; J7050